=== PATIENT | female | born 1985 | race Caucasian/White ===

== ENCOUNTER 2018-10-21 19:14 | Emergency (ER) | payer BC ==
--- NOTE | 2018-10-21 19:38 | EDM.PDOC ---
ED HPI GENERAL MEDICAL PROBLEM - General Chief Complaint: Lower Extremity Injury/Pain Stated Complaint: left 3rd toe injury Time Seen by Provider: 10/21/18 19:20 Source of Information: Reports: Patient. Denies: Old Records (No [facility] records available) History Limitations: Reports: No Limitations - History of Present Illness INITIAL COMMENTS - FREE TEXT/NARRATIVE: Patient drove herself to the emergency room via private automobile for evaluation of a probable dislocation of digit number 3 of her left foot, which she successfully reduced on her own prior to arrival. Note that the patient was walking her dog near her home when she tripped over the leash with a minor left knee abrasion and dislocation of the PIP of digit #3 of the left foot as above. She denies any other foot pain, significant knee pain, head injury, loss of consciousness, change in mental status, diplopia, visual changes, neck/back pain , paresthesias, neurological deficits, dyspnea, chest pain, abdominal pain, or other complaints or injuries. No recent history of abdominal pain, heartburn, nausea, diarrhea, melena, gross hematochezia, or any food intolerance, including fatty foods, etc.. The patient also denies any recent fever, cough, wheezing, dyspnea, etc.. Onset: Today, Sudden Onset Date: 10/21/18 Onset Time: 18:30 Duration: Constant Location: Reports: Lower Extremity, Left. Denies: Head, Face, Neck, Chest, Abdomen, Back, Pelvis, Upper Extremity, Left, Upper Extremity, Right, Lower Extremity, Right, Radiates to Quality: Reports: Ache Severity: Mild Improves with: Reports: Rest Worsens with: Reports: Movement Context: Reports: Trauma (As above) Associated Symptoms: Denies: Confusion, Chest Pain, Cough, Diaphoresis, Fever/ Chills, Headaches, Loss of Appetite, Malaise, Nausea/Vomiting, Shortness of Breath, Syncope, Weakness Treatments FIELD SERVICE SPECIALIST: Reports: Other (see below) (None other than joint reduction as above) Left Toe-Long Pain Score (Numeric/FACES): 2 - Related Data Allergies Allergy/AdvReac Type Severity Reaction Status Date / Time bupropion [From Wellbutrin] Allergy Seizure Verified 10/21/18 19:16 Home Meds: Home Meds Gabapentin [Neurontin] 300 mg PO TID 10/21/18 [History] Sertraline [Zoloft] 200 mg PO DAILY 10/21/18 [History] busPIRone HCl [busPIRone] 30 mg PO BID 10/21/18 [History] Past Medical History Gastrointestinal History: Reports: Other (See Below) Other Gastrointestinal History: History of achalasia requiring surgical repair as below. SAFETY ADMINISTRATOR History: Reports: , Spontaneous : 1 Para: 0 LMP (Approximate): Other (See Below) Other SAFETY ADMINISTRATOR History: Normal LMP about one month ago. Note elective at 6 weeks gestation. Musculoskeletal History: Reports: Arthritis, Osteoarthritis, Other (See Below) Other Musculoskeletal History: History of left knee dislocation at age 14 and right knee dislocation in 2013 with post dislocations not requiring surgical repair. Neurological History: Reports: Neuropathy, Peripheral Psychiatric History: Reports: Anxiety, Depression Dermatologic History: Reports: Other (See Below) Other Dermatologic History: Acne vulgaris with scarring. - Past Surgical History GI Surgical History: Reports: Other (See Below) Other GI Surgeries/Procedures: Laparoscopic repair of achalasia at age 18. Female Surgical History: Reports: D&C, Dilitation & Evacuation, Other (See Below) Other Female Surgeries/Procedures: Elective SAB as above. Social & Family History - Tobacco Use Smoking Status *Q: Current Every Day Smoker Tobacco Use Within Last Twelve Months: Cigarettes Years of Tobacco use: 10 Packs/Tins Daily: 0.8 Packs/Tins Daily Comment: Started smoking at age 23 with maximum use of one pack per day. Used Tobacco, but Quit: No Smoking Cessation Information Provided To Patient: Yes Second Hand Smoke Exposure: No Second Hand Smoke Education Provided: No - Living Situation & Occupation Living situation: Reports: Single, Alone Occupation: Employed (Daycare provider) Review of Systems - Review of Systems Review Of Systems: ROS reveals no pertinent complaints other than HPI. ED EXAM, GENERAL - Physical Exam Exam: See Below Exam Limited By: No Limitations General Appearance: Alert, WD/WN, No Apparent Distress Head: Atraumatic, Normocephalic. No: Facial Swelling, Facial Tenderness, Sinus Tenderness Neck: Normal Inspection, Supple, Non-Tender, Full Range of Motion. No: Lymphadenopathy (L), Lymphadenopathy (R), Thyromegaly Respiratory/Chest: No Respiratory Distress, Lungs Clear, Normal Breath Sounds, No Accessory Muscle Use, Chest Non-Tender. No: Pleural Rub, Retractions Cardiovascular: Normal Peripheral Pulses, Regular Rate, Rhythm, No Edema, No Gallop, No JVD, No Murmur, No Rub. No: Gallop/S3, Gallop/S4, Friction Rub Peripheral Pulses: 2+: Radial (L), Radial (R), Dorsalis Pedis (L), Dorsalis Pedis (R) GI/Abdominal: Normal Bowel Sounds, Soft, Non-Tender, No Organomegaly, No Distention, No Abnormal Bruit, No Mass, Pelvis Stable. No: Guarding (Female) Exam: Deferred Rectal (Female) Exam: Deferred Back Exam: Normal Inspection, Full Range of Motion. No: CVA Tenderness (L), CVA Tenderness (R), Muscle Spasm Extremities: No Pedal Edema, Normal Capillary Refill, Joint Swelling (Proximal phalanx of digit #3 of the left foot with mild ecchymosis in this area), Limited Range of Motion (Digit #3 of the left foot secondary to dislocation and fracture), Other (2 cm in length irregular superficial abrasion over the left patella with no evidence of foreign body, joint effusion, joint instability, deformity, crepitation, etc. with negative anterior drawer, pivot shift, and Ines's test. Moderate palpation pain over the proximal phalanx of digit #3 of the left foot with successful clinical reduction by exam.). No: Carlos Enrique's Sign , Increased Warmth Neurological: Alert, Oriented, CN II-XII Intact, Normal Cognition, Normal Gait, No Motor/Sensory Deficits Psychiatric: Normal Affect, Normal Mood Skin Exam: Ecchymosis (As above), Wound/Incision (As above), Other (Moderate scarring in facial region from acne vulgaris.). No: Diaphoretic Lymphatic: No Adenopathy Course - Vital Signs Last Recorded V/S: Last Vital Signs Temp 37.1 C 10/21/18 19:14 Pulse 62 10/21/18 19:14 Resp 17 10/21/18 19:14 BP 114/66 10/21/18 19:14 Pulse Ox 99 10/21/18 19:14 Vital Signs - 24 hr 10/21/18 19:14 Temperature [ 37.1 C Temporal] Pulse, 62 Peripheral [ Right Pulse Oximetry] Respiratory 17 Rate Blood Pressure 114/66 [Left Upper Arm ] O2 Sat by Pulse 99 Oximetry - Orders/Labs/Meds Orders: Active Orders 24 hr Category Date Time Status Vaccines to be Administered [RC] PER UNIT ROUTINE Care 10/21/18 19:32 Active Toes Third Digit Lt T2 [CR] Stat Exams 10/21/18 19:31 Taken Durable Medical Equipment for Discharge [DME for Oth 10/21/18 19:48 Ordered Discharge] [COMM] Routine Durable Medical Equipment for Discharge [DME for Oth 10/21/18 19:49 Ordered Discharge] [COMM] Routine Obtain Past Medical Record [OM.PC] Routine Oth 10/21/18 19:31 Active Labs: None Meds: Medications Discontinued Medications Generic Name Dose Route Start Last Admin Trade Name Freq PRN Reason Stop Dose Admin Diphtheria/Tetanus/Acell Pertussis 0.5 ml 10/21/18 19:31 10/21/18 20:03 Adacel IM 10/21/18 19:32 0.5 ml .ONCE ONE Administration Neomycin/Polymyxin/Bacitracin 1 each 10/21/18 19:31 10/21/18 20:03 Triple Antibiotic Oint TOP 10/21/18 19:32 1 each ONETIME ONE Administration - Radiology Interpretation Free Text/Narrative:: X-rays of digit #3 of the left foot shows no evidence of dislocation however chip fracture of the proximal aspect of the middle phalanx and additional hairline nondisplaced, non-angulated fracture of the proximal phalanx in the lateral view only. No foreign body noted. Departure - Departure Time of Disposition: 20:30 Disposition: Home, Self-Care 01 Condition: Good Clinical Impression: Laceration, Tobacco abuse counseling Dislocation of toe of left foot Qualifiers: Encounter type: initial encounter Qualified Code(s): S93.105A - Unspecified dislocation of left toe(s), initial encounter Toe fracture, left Qualifiers: Encounter type: initial encounter Toe: lesser toe Fracture type: closed Phalanx : proximal Fracture alignment: nondisplaced Qualified Code(s): S92.515A - Nondisplaced fracture of proximal phalanx of left lesser toe(s), initial encounter for closed fracture - Discharge Information *PRESCRIPTION DRUG MONITORING PROGRAM REVIEWED*: Not Applicable *COPY OF PRESCRIPTION DRUG MONITORING REPORT IN PATIENT RAI: Not Applicable Instructions: Health Risks of Smoking, Toe Dislocation, [id number], Laceration Care, Adult, [id number] Referrals: Jodi Multani PA-C [Primary Care Provider] - Forms: ED Department Discharge Additional Instructions: 1. Follow up with your regular provider in 7 days for reevaluation and recommended repeat x-rays of your third left toe. Bring these discharge instructions with you to that visit. 2. Antibacterial soap wash/soak with subsequent antibacterial dressing such as Neosporin, etc. as directed 2 times per day until the wound or laceration site completely heals. Keep the area clean and dry with activity restrictions as discussed. Never use hydrogen peroxide for wound care. 3. Stop all tobacco use LESLY as directed/per provided information and consider contacting Quit LIne, etc.. 4. Tylenol 650 mg by mouth every 4 hours and/or OTC ibuprofen 2-3 tabs by mouth every 6 hours with food as directed./needed. You may stagger these medications for 48-72 hours only, which essentially means that you are receiving a pain medication about every 2 hours. 5. Immediately after this visit verify that your cellular telephone's voicemail has been activated and is empty. Also verify that your home telephone 's answering machine is operating properly and has space to receive messages. Note that it is sometimes necessary for us to be able to contact you at a later date to discuss your medical care. 6. Please remember that we are ALWAYS here for you and want to answer any questions you may have. Feel free to call the hospital any time and we call you back LESLY. 7. Continue to use postoperative shoe and matt tape your second and third left toes together until otherwise directed by your regular provider with slow advance weightbearing as tolerated and crutches use as discussed - Problem List & Annotations (1) Toe fracture, left SNOMED Code(s): 31822671 Code(s): S92.912A - UNSP FRACTURE OF LEFT TOE(S), INIT FOR CLOS FX Status: Acute Priority: High Onset Date: 10/21/18 Annotation/Comment:: The emergency room nurse did matt tape digits #2 and 3 of the left foot together with this to be continued as per discharge instructions. Postoperative shoe also applied in the emergency room. Crutches were provided. Activity restrictions, weightbearing, etc. were discussed. By patient history she does not need a work excuse. Close follow-up by regular provider as per discharge instructions. Qualifiers: Encounter type: initial encounter Toe: lesser toe Fracture type: closed Phalanx: proximal Fracture alignment: nondisplaced Qualified Code(s): S92.515A - Nondisplaced fracture of proximal phalanx of left lesser toe(s), initial encounter for closed fracture (2) Laceration SNOMED Code(s): 093455554 Code(s): KCE4618 - Status: Acute Priority: High Onset Date: 10/21/18 Annotation/Comment:: Superficial laceration not requiring surgical repair with chlorhexidine swab cleansing and Neosporin dressing placed by the emergency room nurse. Last TdAP on 06/04/12 confirmed by the ER nurse thru [facility], however patient wishes to have her TdAP also updated today. Wound care instructions, activity restrictions, etc. discussed. (3) Dislocation of toe of left foot SNOMED Code(s): 653219941 Code(s): S93.105A - UNSPECIFIED DISLOCATION OF LEFT TOE(S), INITIAL ENCOUNTER Status: Acute Priority: High Onset Date: 10/21/18 Annotation/ Comment:: Successful reduction of dislocated PIP of digit #3 the left foot prior to arrival. Note chip fracture of the proximal aspect of the middle phalanx, however, as above. Qualifiers: Encounter type: initial encounter Qualified Code(s): S93.105A - Unspecified dislocation of left toe(s), initial encounter (4) Tobacco abuse counseling SNOMED Code(s): 733945229, [id number], [id number] Code(s): Z71.6 - TOBACCO ABUSE COUNSELING Status: Chronic Priority: Medium Annotation/Comment:: Tobacco cessation strongly encouraged with information provided at discharge. - Problem List Review Problem List Initiated/Reviewed/Updated: Yes - My Orders Last 24 Hours: My Active Orders 10/21/18 19:31 Toes Third Digit Lt T2 [CR] Stat Obtain Past Medical Record [OM.PC] Routine 10/21/18 19:32 Vaccines to be Administered [RC] PER UNIT ROUTINE 10/21/18 19:48 Durable Medical Equipment for Discharge [DME for Discharge] [COMM] Routine 10/21/18 19:49 Durable Medical Equipment for Discharge [DME for Discharge] [COMM] Routine - Assessment/Plan Last 24 Hours: My Active Orders 10/21/18 19:31 Toes Third Digit Lt T2 [CR] Stat Obtain Past Medical Record [OM.PC] Routine 10/21/18 19:32 Vaccines to be Administered [RC] PER UNIT ROUTINE 10/21/18 19:48 Durable Medical Equipment for Discharge [DME for Discharge] [COMM] Routine 10/21/18 19:49 Durable Medical Equipment for Discharge [DME for Discharge] [COMM] Routine Assessment:: As above Plan: As above. Extensive precautions were given to the patient, who is in agreement with the treatment plan. See Patient Instructions for further treatment and plan.
[2018-10-21] MEDS: Diphtheria,Pertussis(Acell),Tetanus Vaccine 0.5 ML SDV IM ONE (20:03)
[2018-10-21] MEDS: Bacitracin/Neomycin/Polymyxin B Oint 0.9 GM U/D Packet TOP ONE (20:03)
== END 2018-10-21 20:30 | disposition home or self-care (01) ==
LOC: LL.ED 19:14
DX: S92.515A Nondisplaced fracture of proximal phalanx of left lesser toe(s), initial encounter for closed fracture (principal); F17.210 Nicotine dependence, cigarettes, uncomplicated; Z88.8 Allergy status to other drugs, medicaments and biological substances; Z79.899 Other long term (current) drug therapy; F41.9 Anxiety disorder, unspecified; F32.9 Major depressive disorder, single episode, unspecified; Z23 Encounter for immunization; X58.XXXA Exposure to other specified factors, initial encounter
CPT/HCPCS: 73660-T2; 90471; 90715; 99283-25